=== PATIENT | male | born 1955 | race Caucasian/White ===

== ENCOUNTER 2023-07-30 09:01 | Outpatient (OUT) | payer OTHER, SELFPAY ==
[2023-07-30 09:16] LABS: Hemoglobin 15.8 g/dL (14.0-18.0)
== END 2023-07-30 09:02 | disposition home or self-care (01) ==
LOC: CARD 09:01
DX: R06.09 Other forms of dyspnea (principal); F17.210 Nicotine dependence, cigarettes, uncomplicated
CPT/HCPCS: 36415; 85018

== ENCOUNTER 2025-03-12 11:48 | Outpatient (OUT) | payer OTHER, SELFPAY ==
[2025-03-12 13:07] LABS: Hematocrit 46.3 % (42.0-54.0); Hemoglobin 16.7 g/dL (14.0-18.0); Immature Granulocytes Abs Auto 0.12 10^3/uL (0.00-0.03); Immature Granulocytes Pct Auto 1.2 % (0.0-0.5); Lymphocytes Absolute Auto 1.7 10^3/uL (1.2-3.8); Mean Corpuscular HGB Conc 36.1 g/dL (29.9-35.2); Mean Corpuscular Hemoglobin 34.5 pg (25.9-34.0); Mean Corpuscular Volume 95.7 fL (80.0-94.0); Platelet Count 219 10^3/uL (150-450); Red Blood Count 4.84 10^6/uL (4.70-6.10); White Blood Count 10.2 10^3/uL (4.0-11.0)
[2025-03-12 13:15] LABS: Microalbum Creatinine Ratio Ur 6.2 mg/g (0.0-29.9)
[2025-03-12 14:06] LABS: Alanine Aminotransferase 34 U/L (16-63); Albumin Globulin Ratio 0.8; Albumin Level 3.8 g/dL (3.4-5.0); Alkaline Phosphatase 121 U/L (46-116); Anion Gap 14.0; Aspartate Amino Transferase 28 U/L (15-37); Blood Urea Nitrogen 29.0 mg/dL (7.0-18.0); Calcium 9.6 mg/dL (8.5-10.1); Carbon Dioxide 27.1 mmol/L (21.0-32.0); Chloride 93 mmol/L (98-107); Cholesterol 225 mg/dL (<=200); Estimated GFR (African America 51 (>=60 mL/min/1.73m^2); Estimated GFR (Non-African Ame 42 (>=60 mL/min/1.73m^2); Globulin 4.7 g/dL; Glucose 358 mg/dL (74-106); HDL Cholesterol 68 mg/dL (40-60); Potassium 4.1 mmol/L (3.5-5.1); Sodium 130 mmol/L (136-145); Total Protein 8.5 g/dL (6.4-8.2); Triglycerides 112 mg/dL (<=150); VLDL CHOLESTEROL 22.4 mg/dL
== END 2025-03-12 11:49 | disposition home or self-care (01) ==
LOC: LAB 11:50
DX: E78.2 Mixed hyperlipidemia (principal); Z12.5 Encounter for screening for malignant neoplasm of prostate; N18.31 Chronic kidney disease, stage 3a; F17.210 Nicotine dependence, cigarettes, uncomplicated; E11.59 Type 2 diabetes mellitus with other circulatory complications; M17.0 Bilateral primary osteoarthritis of knee; I12.9 Hypertensive chronic kidney disease with stage 1 through stage 4 chronic kidney disease, or unspecified chronic kidney disease
CPT/HCPCS: 36415; 80053; 80061; 82043; 82570; 85025; G0103